=== PATIENT | male | born 1955 | race Caucasian/White ===

== ENCOUNTER 2024-05-20 12:38 | Inpatient (IN) | payer MEDICARE, OTHER ==
[~2024-05-20] VITALS: Ht 182.9 cm; Wt 54.0 kg
[~2024-05-20 12:38] MED LIST: METF500 PO
[2024-05-20 13:15] LABS: BASOPHILS ABSOLUTE AUTO 0.06 K/mm3 (0.00-0.23); BASOPHILS PERCENT AUTO 0 % (0-2); EOSINOPHILS ABSOLUTE AUTO 0.15 K/mm3 (0.00-0.68); EOSINOPHILS PERCENT AUTO 1 % (0-6); Hematocrit 39.6 % (37.0-53.0); Hemoglobin 13.3 g/dL (13.5-17.5); IMMATURE GRAN ABSOLUTE AUTO 0.22 K/mm3 (0.00-0.10); IMMATURE GRAN PERCENT AUTO 1 % (0-1); LYMPHOCYTES ABSOLUTE AUTO 2.01 K/mm3 (0.84-5.20); LYMPHOCYTES PERCENT AUTO 11 % (21-46); MONOCYTES PERCENT AUTO 8 % (4-13); Mean Corpuscular HGB 30.4 pg (26.0-34.0); Mean Corpuscular HGB Conc 33.6 g/dL (31.5-36.5); Mean Corpuscular Volume 90 fL (80-100); Mean Platelet Volume 10.3 fL (9.1-12.4); NEUTROPHILS ABSOLUTE AUTO 15.05 K/mm3 (1.96-9.15); NEUTROPHILS PERCENT AUTO 79 % (41-73); Platelet Count 446 K/mm3 (150-400); RDW Coefficient Variation 14.3 % (11.7-14.2); Red Blood Cell Count 4.38 M/mm3 (4.30-5.90); White Blood Cell Count 18.99 K/mm3 (4.00-11.30)
[2024-05-20 13:39] LABS: Albumin, Blood 2.6 g/dL (3.4-5.0); Albumin/Globulin Ratio 0.4 (0.8-1.8); Bilirubin, Total 0.6 mg/dL (0.1-1.0); Bun/Creatinine Ratio 42.4 (12.0-20.0); Calcium, Blood 9.1 mg/dL (8.5-10.1); Creatinine, Blood 1.44 mg/dL (0.60-1.20); Potassium, Blood 3.9 mmol/L (3.5-5.5); Total Protein, Blood 8.6 g/dL (6.4-8.2)
[2024-05-20] MEDS ORDERED: ATORVASTATIN CA20 MG PO (15:15)
[2024-05-20] MEDS ORDERED: Aspir 8181 MG PO (15:16)
[2024-05-20] MEDS ORDERED: CANDESARTAN CILE8 MG PO (15:16)
[2024-05-20] MEDS ORDERED: FentaNYL Citrate 50 MCG/ML 2 ML Injection IV ONE (15:40)
[2024-05-20] MEDS ORDERED: CeFAZolin Sodium 2,000 MG in NS 100 ML IV ONE (15:45)
[2024-05-20] MEDS ORDERED: NS 1,000 ML IV SCH ×2 (15:50→19:00)
[2024-05-20] MEDS ORDERED: Trimethoprim/Sulfamethoxazole DS Tab PO ONE (15:50)
[2024-05-20 17:08] LABS: Magnesium, Blood 2.6 mg/dL (1.6-2.4); Phosphorus, Blood 3.9 mg/dL (2.5-4.9)
[2024-05-20 18:02] LABS: International Normalized Ratio 1.26; Prothrombin Time Results 13.3 Sec (9.7-11.5)
[2024-05-20] MEDS ORDERED: FentaNYL Citrate 50 MCG/ML 2 ML Injection IV PRN (19:00)
[2024-05-20] MEDS ORDERED: Acetaminophen 325 MG TABLET PO PRN (19:00)
[2024-05-20] MEDS ORDERED: Ondansetron HCl 2 MG / ML 2ML Vial IV PRN (19:05)
[2024-05-20] MEDS ORDERED: FLU VACC TS2024-25(6MOS UP)/PF 45 MCG/0.5 ML SYRINGE IM SCH (19:05)
[2024-05-20] MEDS ORDERED: Insulin Glargine-Yfgn 100 Unit/mL 3 ML SYR SC SCH (20:00)
[2024-05-20] MEDS ORDERED: Piperacillin/Tazobactam Sod 4.5 GM in NS 100 ML IV SCH (20:00)
[2024-05-20 20:18] LABS: Source, Urine Clean Catch
[2024-05-20 20:21] LABS: Bilirubin, Urine Neg (Neg); Blood, Urine Neg (Neg); Glucose Qualitative, Urine Neg (Neg); Ketones, Urine Neg (Neg); Leukocyte Esterase, Urine Neg (Neg); Nitrite, Urine Neg (Neg); Protein, Urine 1+ (Neg); Urobilinogen, Urine 1+ (Normal)
[2024-05-20 20:24] LABS: Appearance, Urine Clear (Clear); Color, Urine Yellow (P-Yellow)
[2024-05-20] MEDS ORDERED: Vancomycin HCL 1,250 MG in NS 250 ML IV ONE (20:40)
[2024-05-20 22:00] VITALS: BP 124/76
--- NOTE | 2024-05-20 22:17 | NUR ---
PT ARRIVED TO ROOM 211 FROM ER. PT ALERT, VSS, SPEEH SLURRED, CONTRACTURE TO LUE. LEFT JAW W/LARGE ABSCESS; PACKING VISUALIZED. ABSCESS DRAINIGN LARGE AMT BROWN FOUL SMELLING DRNG. PT DENIES PAIN. REDNESS NOTED TO COCCYX, MEPILEX APPLIED. RED ABRASION NOTED TO LEFT HIP. SKIN OTHERWISE CDI. PT SLOW TO RESPOND, SPEECH SLURRED, PT IS ABLE TO MAKE NEEDS KNOWN. PT DEMONSTRATED CALL LIGHT USE. BED ALARM ON.
--- NOTE | 2024-05-20 22:21 | NUR ---
CODE STATUS: CODE STATUS DISCUSSED W/PT AND SISTER. PT YELLED "NO" LOUDLY WHEN CPR EXPLAINED AND ASKED IF HE WOULD LIKE CPR PERFORMED. HOSPITALIST NOTIFIED, NEW ORDER FOR DNR STATUS RECEIVED.
--- NOTE | 2024-05-20 22:45 | NUR ---
REPORT GIVEN TO KATHI NAVARRETE
[2024-05-21 03:48] VITALS: BP 122/69
[2024-05-21 05:32] LABS: BASOPHILS ABSOLUTE AUTO 0.05 K/mm3 (0.00-0.23); BASOPHILS PERCENT AUTO 0 % (0-2); EOSINOPHILS ABSOLUTE AUTO 0.13 K/mm3 (0.00-0.68); EOSINOPHILS PERCENT AUTO 1 % (0-6); Hematocrit 30.9 % (37.0-53.0); Hemoglobin 10.7 g/dL (13.5-17.5); IMMATURE GRAN ABSOLUTE AUTO 0.35 K/mm3 (0.00-0.10); IMMATURE GRAN PERCENT AUTO 2 % (0-1); LYMPHOCYTES ABSOLUTE AUTO 2.11 K/mm3 (0.84-5.20); LYMPHOCYTES PERCENT AUTO 14 % (21-46); MONOCYTES ABSOLUTE AUTO 1.15 K/mm3 (0.16-1.47); MONOCYTES PERCENT AUTO 8 % (4-13); Mean Corpuscular HGB 31.1 pg (26.0-34.0); Mean Corpuscular HGB Conc 34.6 g/dL (31.5-36.5); Mean Corpuscular Volume 90 fL (80-100); NEUTROPHILS ABSOLUTE AUTO 10.82 K/mm3 (1.96-9.15); NEUTROPHILS PERCENT AUTO 74 % (41-73); Platelet Count 331 K/mm3 (150-400); RDW Coefficient Variation 14.3 % (11.7-14.2); RDW Standard Deviation 47.2 fL (35.1-46.3); Red Blood Cell Count 3.44 M/mm3 (4.30-5.90); White Blood Cell Count 14.61 K/mm3 (4.00-11.30)
[2024-05-21] MEDS ORDERED: Insulin Human Lispro 100 Units/ML 3ML Syringe SC SCH ×3 (06:00→21:00)
--- NOTE | 2024-05-21 06:00 | NUR ---
SHIFT SUMMARY NOC. PT ADMIT THIS SHIFT FOR LEFT MANDIBULAR ABSCESS. ABSCESS IS ACTIVELY DRAINING FOUL SMELLING PURULENT CHRISTENSEN DRAINAGE. PT DENIES PAIN THIS SHIFT, OCCASSIONAL WINCING NOTED WITH REPOSITIONING. PT HAS REDNESS ON COCCYX UPON ADMIT, MEPELEX PLACED. PT INCONTINENT OF URINE AT BASELINE AND IS NON AMBULATORY. SURGICAL INFECTION PREVENTION PERFORMED THIS SHIFT. TELEMETRY INTACT WITH NO REPORTED EVENTS. BEDALARM SET FOR SAFETY. DNR BAND ON LEFT WRIST. PT NPO SINCE 0000. CALL LIGHT IN REACH.
[2024-05-21 06:03] LABS: Albumin/Globulin Ratio 0.5 (0.8-1.8); Bilirubin, Total 0.5 mg/dL (0.1-1.0); Calcium, Blood 7.5 mg/dL (8.5-10.1); Creatinine, Blood 0.88 mg/dL (0.60-1.20); Globulin, Blood 3.9 g/dL (2.2-4.0); Potassium, Blood 2.6 mmol/L (3.5-5.5)
[2024-05-21 06:42] LABS: Total Protein, Blood 5.9 g/dL (6.4-8.2)
[2024-05-21 07:13] VITALS: BP 109/67
[2024-05-21] MEDS ORDERED: NS 250 ML IV PRN (07:20)
[2024-05-21] MEDS ORDERED: Vancomycin HCL 750 MG in NS 250 ML IV SCH (09:00)
--- NOTE | 2024-05-21 09:32 | NUR ---
attempted to clean around oozing abcess site. pt tolerated minimal cleaning. large amounts of purulent drainage coming out. thick yellow/brown. very painful to touch. attempted to help trim matted hair around site.
[2024-05-21] MEDS ORDERED: Potassium Chloride 40 MEQ in NS 250 ML IV ONE (10:55)
[2024-05-21] MEDS ORDERED: Enoxaparin 40 MG/0.4 ML SYR SC SCH (13:00)
--- NOTE | 2024-05-21 13:28 | NUR ---
wound care done, shaved further and cleaned around site, continues to drain. gauze placed on it per orders. pt very painful with any touch. medication per emar.
[2024-05-21 14:30] VITALS: BP 129/72
[2024-05-21] MEDS ORDERED: Potassium Chloride 20 MEQ in NS 90 ML IV ONE (15:00)
--- NOTE | 2024-05-21 17:02 | NUR ---
SHIFT SUMMARY PT HAS BEEN RESTING IN BED. REPOSITIONING EVERY 2 HOURS. LARGE AMOUNT OF PURULENT DRAINAGE FROM ABCESS TO LEFT NECK DURING SHIFT. PAIN CONTROLLED WELL DURING SHIFT. MEDICATED DURING DRESSING CHANGES OR CLEANING. INC OF VOID, DOES NOT CALL. CAN BE ANGRY WITH CARE WHEN PAINFUL, OVERALL COOPERATIVE WITH CARE. IV ABX INFUSING PER EMAR.
[2024-05-21 17:34] LABS: Bun/Creatinine Ratio 29.2 (12.0-20.0); Creatinine, Blood 0.89 mg/dL (0.60-1.20)
[2024-05-21 19:37] VITALS: BP 131/74
[2024-05-21 20:16] LABS: Vancomycin, Trough 14.6 ug/mL (5.0-10.0)
[2024-05-22 03:49] VITALS: BP 115/67
[2024-05-22 05:59] LABS: BASOPHILS ABSOLUTE AUTO 0.08 K/mm3 (0.00-0.23); BASOPHILS PERCENT AUTO 1 % (0-2); EOSINOPHILS PERCENT AUTO 2 % (0-6); Hematocrit 29.7 % (37.0-53.0); IMMATURE GRAN PERCENT AUTO 3 % (0-1); LYMPHOCYTES ABSOLUTE AUTO 2.24 K/mm3 (0.84-5.20); LYMPHOCYTES PERCENT AUTO 17 % (21-46); MONOCYTES ABSOLUTE AUTO 0.85 K/mm3 (0.16-1.47); MONOCYTES PERCENT AUTO 7 % (4-13); Mean Corpuscular HGB 30.9 pg (26.0-34.0); Mean Corpuscular HGB Conc 33.7 g/dL (31.5-36.5); Mean Corpuscular Volume 92 fL (80-100); Mean Platelet Volume 9.6 fL (9.1-12.4); NEUTROPHILS ABSOLUTE AUTO 9.32 K/mm3 (1.96-9.15); NEUTROPHILS PERCENT AUTO 71 % (41-73); Platelet Count 330 K/mm3 (150-400); RDW Standard Deviation 47.8 fL (35.1-46.3); Red Blood Cell Count 3.24 M/mm3 (4.30-5.90); White Blood Cell Count 13.09 K/mm3 (4.00-11.30)
--- NOTE | 2024-05-22 06:27 | NUR ---
SHIFT SUMMARY NOC. PT ADMITTED FOR LEFT MANDIBULAR ABSCESS. ABSESS DRAINING MODERATE PURULENT CHRISTENSEN DRAINAGE. PT MEDICATED FOR PAIN X2 THIS SHIFT WITH IV FENT 50MCG. TELEMETRY INTACT WITH NO REPORTED EVENTS. PT HAVING INCONTINENT VOIDS. PT HAD AN INCONTINENT LIQUID BM. CALL LIGHT IN REACH.
[2024-05-22 06:34] LABS: Albumin, Blood 1.9 g/dL (3.4-5.0); Albumin/Globulin Ratio 0.5 (0.8-1.8); Bilirubin, Total 0.6 mg/dL (0.1-1.0); Bun/Creatinine Ratio 23.6 (12.0-20.0); Calcium, Blood 7.8 mg/dL (8.5-10.1); Creatinine, Blood 0.72 mg/dL (0.60-1.20); Globulin, Blood 3.8 g/dL (2.2-4.0); Total Protein, Blood 5.7 g/dL (6.4-8.2)
[2024-05-22] MEDS ORDERED: NS 1,000 ML IV SCH (07:10)
[2024-05-22 07:24] VITALS: BP 139/68
[2024-05-22] MEDS ORDERED: Potassium Chloride 20 MEQ in NS 90 ML IV SCH (08:00)
[2024-05-22 14:34] LABS: Bun/Creatinine Ratio 19.9 (12.0-20.0); Calcium, Blood 7.9 mg/dL (8.5-10.1); Creatinine, Blood 0.7 mg/dL (0.60-1.20); Potassium, Blood 3.7 mmol/L (3.5-5.5)
[2024-05-22 16:00] VITALS: BP 153/80
--- NOTE | 2024-05-22 17:10 | NUR ---
SHIFT SUMMARY PT AOX2, SEMI COOPERATIVE WITH CARE, ABLE TO MAKE NEEDS KNOWN. PT IS BEDREST. DID NOT GET CT TODAY, MD ORDER. MD PERFORMED BEDSIDE PROCEDURE AND PLACED DRAIN IN MANDIBLE AREA. WOUND ORDERS PLACED. PT NOW ON FULL LIQUID DIET, FEEDING ASSIST. HAS HAD MULTIPLE INCONTINET BMS TODAY. BED IN LOWEST POSITION, CALL LIGHT WITHIN REACH.
[2024-05-22 19:12] VITALS: BP 150/70
[2024-05-22 23:33] VITALS: BP 123/79
[2024-05-23 03:28] VITALS: BP 130/70
[2024-05-23 03:58] LABS: BASOPHILS ABSOLUTE AUTO 0.05 K/mm3 (0.00-0.23); BASOPHILS PERCENT AUTO 1 % (0-2); EOSINOPHILS ABSOLUTE AUTO 0.17 K/mm3 (0.00-0.68); EOSINOPHILS PERCENT AUTO 2 % (0-6); Hematocrit 46.4 % (37.0-53.0); Hemoglobin 15.9 g/dL (13.5-17.5); IMMATURE GRAN ABSOLUTE AUTO 0.29 K/mm3 (0.00-0.10); IMMATURE GRAN PERCENT AUTO 4 % (0-1); LYMPHOCYTES ABSOLUTE AUTO 0.97 K/mm3 (0.84-5.20); LYMPHOCYTES PERCENT AUTO 13 % (21-46); MONOCYTES ABSOLUTE AUTO 0.46 K/mm3 (0.16-1.47); MONOCYTES PERCENT AUTO 6 % (4-13); Mean Corpuscular HGB 30.8 pg (26.0-34.0); Mean Corpuscular HGB Conc 34.3 g/dL (31.5-36.5); Mean Corpuscular Volume 90 fL (80-100); Mean Platelet Volume 9.4 fL (9.1-12.4); NEUTROPHILS ABSOLUTE AUTO 5.55 K/mm3 (1.96-9.15); NEUTROPHILS PERCENT AUTO 74 % (41-73); Platelet Count 197 K/mm3 (150-400); RDW Standard Deviation 46.6 fL (35.1-46.3); Red Blood Cell Count 5.16 M/mm3 (4.30-5.90); White Blood Cell Count 7.49 K/mm3 (4.00-11.30)
[2024-05-23 04:23] LABS: Bun/Creatinine Ratio 15.3 (12.0-20.0); Calcium, Blood 7.6 mg/dL (8.5-10.1); Creatinine, Blood 0.59 mg/dL (0.60-1.20); Potassium, Blood 3.3 mmol/L (3.5-5.5)
--- NOTE | 2024-05-23 05:48 | NUR ---
SHIFT SUMMARY PT S/P DRAIN PLACEMENT TO MANDIBULAR ABCESS YESTERDAY BY DR. CARD. DRAIN IS PUTTING OUT PURULENT CHRISTENSEN DISCHARGE. 4X4 GAUZE IN PLACE OVER TOP. PT CONTINUES TO HAVE LOOSE INCONTINENT BOWEL MOVEMENTS. PT REPORTS SHOULDER AND BACK PAIN, RELIEVED WITH MEDS PER EMAR. PT REPOSITIONED T/O THE NIGHT. VITALS STABLE. IV ANTIBIOTICS INFUSED. PLAN OF CARE REMAINS UNCHANGED. BED IN LOWEST POSITION, CALL LIGHT WITHIN REACH.
[2024-05-23 07:45] VITALS: BP 139/66
[2024-05-23] MEDS ORDERED: CefTRIAXone Sodium 2,000 MG in NS 100 ML IV SCH (09:00)
[2024-05-23 09:37] LABS: Vancomycin, Trough 14.8 ug/mL (5.0-10.0)
[2024-05-23] MEDS ORDERED: Potassium Chloride 20 MEQ TabCR PO ONE ×2 (13:00→14:20)
[2024-05-23 14:25] VITALS: BP 147/66
--- NOTE | 2024-05-23 15:31 | NUR ---
PT CONTINUES TO HAVE LOOSE/LIQUID STOOLS TODAY, STATES "MY GUT HURTS" DR. CARDOZO NOTIFIED, C-DIFF TESTING ORDERED.
--- NOTE | 2024-05-23 16:10 | NUR ---
ASSUMED CARE FROM EMILY ARMENTA, PATIENT RESTING AND DENIES NEEDS AT THIS TIME CALL LIGHT IN REACH.
--- NOTE | 2024-05-23 16:27 | NUR ---
SUMMARY ALERT, ANSWERS QUESTIONS APPROPRIATELY AT TIMES, TURNED Q2HRS W/ ATTENDS CHANGE, PT HAS HAD MULTIPLE LOOSE STOOLS ALL DAY, DR. CARDOZO AWARE, STARTED ON ROCEPHIN IV TODAY, L MANDIBLE I&D AREA W/ RAJINDER DRAIN CONT. TO DRAIN CHRISTENSEN PURULENT DRAINAGE, GAUZE DSG CHANGED X3 TODAY, PT TOLERATING DIET W/ ASSIST IN FEEDING, NO OTHER CHANGES NOTED THIS SHIFT.
[2024-05-23 19:27] VITALS: BP 156/81
[2024-05-23 23:49] LABS: C DIFFICILE DNA NEGATIVE (Negative)
[2024-05-24 01:12] VITALS: BP 163/75
[2024-05-24 04:49] VITALS: BP 141/83
[2024-05-24 05:25] LABS: BASOPHILS ABSOLUTE AUTO 0.06 K/mm3 (0.00-0.23); BASOPHILS PERCENT AUTO 0 % (0-2); EOSINOPHILS ABSOLUTE AUTO 0.31 K/mm3 (0.00-0.68); EOSINOPHILS PERCENT AUTO 2 % (0-6); Hemoglobin 10.1 g/dL (13.5-17.5); IMMATURE GRAN ABSOLUTE AUTO 0.66 K/mm3 (0.00-0.10); IMMATURE GRAN PERCENT AUTO 4 % (0-1); LYMPHOCYTES ABSOLUTE AUTO 2.65 K/mm3 (0.84-5.20); LYMPHOCYTES PERCENT AUTO 15 % (21-46); MONOCYTES ABSOLUTE AUTO 1.02 K/mm3 (0.16-1.47); MONOCYTES PERCENT AUTO 6 % (4-13); Mean Corpuscular HGB 30.7 pg (26.0-34.0); Mean Corpuscular HGB Conc 33.7 g/dL (31.5-36.5); Mean Corpuscular Volume 91 fL (80-100); Mean Platelet Volume 9.9 fL (9.1-12.4); NEUTROPHILS ABSOLUTE AUTO 12.46 K/mm3 (1.96-9.15); NEUTROPHILS PERCENT AUTO 73 % (41-73); Platelet Count 348 K/mm3 (150-400); RDW Coefficient Variation 13.8 % (11.7-14.2); RDW Standard Deviation 46.5 fL (35.1-46.3); Red Blood Cell Count 3.29 M/mm3 (4.30-5.90); White Blood Cell Count 17.16 K/mm3 (4.00-11.30)
[2024-05-24 05:56] LABS: Bun/Creatinine Ratio 8.9 (12.0-20.0); Calcium, Blood 7.7 mg/dL (8.5-10.1); Creatinine, Blood 0.45 mg/dL (0.60-1.20); Potassium, Blood 3.3 mmol/L (3.5-5.5)
[2024-05-24 07:09] VITALS: BP 147/81
--- NOTE | 2024-05-24 07:37 | NUR ---
NO ACUTE CHANGES
[2024-05-24] MEDS ORDERED: Loperamide HCl 2 MG Cap PO PRN (11:05)
[2024-05-24 15:02] VITALS: BP 162/89
--- NOTE | 2024-05-24 15:24 | NUR ---
SPOKE WITH PT'S SISTER MANDI BY PHONE TODAY. SHE STATES PT RECENTLY MOVED IN WITH HER AFTER IT BECAME CLEAR HE WAS NO LONGER ABLE TO TAKE CARE OF HIMSELF. HE HAS HISTORY OF STROKES AND YEARS OF DRUG ABUSE. SHE STATES HE WILL ANSWER [facility] OCCASIONALLY BUT NOT ALWAYS APPROPRIATELY. SHE STATES SHE DOESN'T KNOW MUCH MORE ABOUT HIS MEDICAL HISTORY THAN DIABETES, HX OF CVA'S, AND MENTAL HEALTH ISSUES. AT THIS TIME, SHE IS PLANNING TO TAKE THE PATIENT HOME WITH HOME HEALTH WHEN TIME FOR DISCHARGE. MANDI REPORTS THE PATIENT IS RESISTIVE TO CARE AT TIMES, WILL REFUSE TO GO TO MEDICAL APPOINTMENTS OR THE HOSPITAL. SHE STATES HIS FACIAL ABCESS GOT BAD IT DID BECAUSE HE REFUSED TO BE SEEN UNTIL IT WAS "REALLY BAD." SHE ALSO STATES HE WILL SAY THINGS LIKE, "I WANT TO LAY DOWN AND " OFTEN AND COMPLAINS OF PAIN OFTEN.
--- NOTE | 2024-05-24 16:14 | NUR ---
SUMMARY NO ACUTE EVENTS, PATIENT HAVING MULTIPLE LOOSE STOOLS, ORDER FOR IMODIUM AND PROBIOTIC OBTAINED. TYLENOL GIVEN FOR PAIN TODAY. TURN Q2, BED BATH AND LINEN CHANGED, INCONT. AND ATTENDS PLACED. DRESING CHANGED ON MANDIBULAR INCISION, DR CARD REMOVED DRAIN TODAY. SCANT YELLOW DRNG. VSS. ROUNDING PER PROTOCOL.
--- NOTE | 2024-05-24 16:14 | NUR ---
AFTER REVIEW OF PT'S LABS, PHYSICAL ASSESSMENT AND CONVERSATION WITH SISTER, IT'S APPARENT THE PATIENT QUALIFIES FOR HOSPICE. DISCUSSED WITH DR. CARDOZO WHO IS IN AGREEMENT. PT'S SISTER MANDI STATED THIS WAS EXACTLY THE KIND OF SERVICE SHE WAS HOPING FOR, SHE HAS CONCERNS THAT HE HAS BOTH UNTREATED PAIN AND ANXIETY, ALONG WITH MALNUTRITION, WHILE REFUSING TO EAT MORE THAN BITES. THE PATIENT DID NOT WANT TO BE TRANSPORTED TO THE HOSPITAL AND WOULD LIKELY HAVE REFUSED IF HE WERE PHYSICALLY STRONGER. [facility] TO ADMIT THE PATIENT TOMORROW MORNING.
[2024-05-24 21:00] VITALS: BP 135/80
[2024-05-24] MEDS ORDERED: Lactobacil 2-S.Thermo-Bifido 1 1 Cap PO SCH (21:00)
[2024-05-25 04:47] VITALS: BP 137/82
--- NOTE | 2024-05-25 06:39 | NUR ---
SHIFT SUMMARY NO ACUTE CHANGES T/O NIGHT. Q2 TURNS. NO BM T/O SHIFT. IS VOIDING. MEDICATED X 1 FOR PAIN. POOR PO INTAKE. PT REFUSES IVF AND WOUND CARE/DRESSING CHANGE. WILL GIVE REPORT TO ONCOMING RN.
[2024-05-25 07:21] VITALS: BP 155/78
[2024-05-25] MEDS ORDERED: Nicotine 21 MG PATCH TOP SCH (09:00)
[2024-05-25] MEDS ORDERED: AMOCLA875 PO (09:33)
--- NOTE | 2024-05-25 09:52 | NUR ---
DISCHARGE NOTE THIS RN ASSUMED CARE AT APPROX 0715. PATIENT ALERT AND ORIENTED X3 - BASELINE FORGETFULNESS. SOFT SPEECH - COMMUNICATES NEEDS EFFECTIVELY. VSS. TELEMETRY SHOWING SINUS W/ BBB 90s PRIOR TO REMOVAL. ON ROOM AIR, SATs >90%. RR EVEN, UNLABORED. DENIES SOB. INCONTINENT OF URINE/STOOL - ATTENDS CHANGE THIS MORNING. MEDIPORE DRESSING TO L MANDIBLE CHANGED THIS MORNING - MODERATE YELLOW SANGUINOUS DRAINAGE. DRESSINGS PROVIDED FOR WOUND CARE AT HOME. PATIENT TO DC HOME WITH HOSPICE. ARRANGED TRANSPORT ARRIVED AT APPROX 0920. IVs REMOVED. DC EDUCATION PROVIDED. PERSONAL BELONGINGS WITH PATIENT. PATIENT TRANSFERRED TO WITH 2P ASSIST. PATIENT TRANSFERRED OFF UNIT AT APPROX 0940.
== END 2024-05-25 09:38 | disposition hospice, home (50) | DRG 872 ==
LOC: ER 12:38 → ERHOLD 18:30 → SURS 18:30
PROVIDERS: Internal Medicine; Student in an Organized Health Care Education/Training Program; ADMIT Internal Medicine
DX: A41.9 Sepsis, unspecified organism (principal); L03.211 Cellulitis of face; R64 Cachexia; L02.01 Cutaneous abscess of face; N17.9 Acute kidney failure, unspecified; Z68.1 Body mass index [BMI] 19.9 or less, adult; E78.5 Hyperlipidemia, unspecified; E87.6 Hypokalemia; F17.210 Nicotine dependence, cigarettes, uncomplicated; F15.10 Other stimulant abuse, uncomplicated; I10 Essential (primary) hypertension; Z66 Do not resuscitate; Z86.73 Personal history of transient ischemic attack (TIA), and cerebral infarction without residual deficits; Z79.82 Long term (current) use of aspirin; Z79.899 Other long term (current) drug therapy; E11.65 Type 2 diabetes mellitus with hyperglycemia; Z71.6 Tobacco abuse counseling; Z71.51 Drug abuse counseling and surveillance of drug abuser
CPT/HCPCS: 10061; 36415; 71045; 76536; 80048; 80053; 80202; 82947; 83605; 83735; 83880; 84100; 84484; 85025; 85610; 85730; 87040; 87070; 87075; 87077; 87147; 87205; 87493; 93005; 93010; 96365-59; 96375-59; 99285-25; A9270; C1751; J0690; J0696; J1650; J1815; J2543; J3010; J3370; J3480; J7030; J7050